=== PATIENT | female | born 1985 | race Caucasian/White ===

== ENCOUNTER 2017-03-29 01:08 | Emergency (ER) | payer MEDICAID ==
[2017-03-29 01:23] VITALS: BP 143/92
--- NOTE | 2017-03-29 02:36 | C.PDOC ---
History Of Present Illness 31 year old female presents to the ED c/o left elbow pain that started SP tripping and falling today. Patient reports she has a history of elbow surgery 2 years ago, she his right hand dominant. Patient denies changes in sensation, weakness, numbness, LOC, head injury. Time Seen by Provider: 03/29/17 01:26 Chief Complaint (Nursing): Upper Extremity Problem/Injury History Per: Patient History/Exam Limitations: no limitations Onset/Duration Of Symptoms: Hrs Current Symptoms Are (Timing): Still Present Quality: "Pain" Exacerbating Factor(s): Movement Recent travel outside of the [place]: No Additional History Per: Patient Past Medical History Reviewed: Historical Data, Nursing Documentation, Vital Signs Vital Signs: Last Vital Signs Temp 98 F 03/29/17 04:25 Pulse 82 03/29/17 04:25 Resp 20 03/29/17 04:25 BP 143/92 H 03/29/17 01:21 Pulse Ox 98 03/29/17 04:25 - Medical History PMH: Bipolar Disorder, Schizophrenia Denies: Chronic Kidney Disease Surgical History: No Surg Hx Family History: States: Unknown Family Hx - Social History Hx Tobacco Use: Yes Hx Alcohol Use: Yes Hx Substance Use: No - Immunization History Hx Tetanus Toxoid Vaccination: No Hx Influenza Vaccination: No Hx Pneumococcal Vaccination: No Review Of Systems Constitutional: Negative for: Fever, Chills Cardiovascular: Negative for: Chest Pain Respiratory: Negative for: Cough, Shortness of Breath Gastrointestinal: Negative for: Nausea, Vomiting, Abdominal Pain Musculoskeletal: Positive for: Arm Pain (left elbow) Skin: Negative for: Rash Neurological: Negative for: Weakness, Numbness Physical Exam - Physical Exam Appears: Non-toxic, No Acute Distress Skin: Normal Color, Warm, Dry Head: Atraumatic, Normacephalic Nose: No Discharge, No Deformity Oral Mucosa: Moist Neck: Normal ROM, Supple Chest: Symmetrical Cardiovascular: Rhythm Regular Respiratory: Normal Breath Sounds, No Rales, No Rhonchi, No Wheezing Gastrointestinal/Abdominal: Soft, No Tenderness Extremity: No Normal ROM (Decreased secondary to pain left elbow), Tenderness ( Dorsal aspect of left elbow), No Deformity, Swelling (dorsal aspect of left elbow) Pulses: Left Radial: Normal, Right Radial: Normal Neurological/Psych: Oriented x3, Normal Speech, Normal Cognition, Normal Sensation Gait: Steady ED Course And Treatment O2 Sat by Pulse Oximetry: 97 (On RA) Pulse Ox Interpretation: Normal - Other Rad Left elbow X-Ray X-Ray: Interpreted by Me, Viewed By Me Interpretation: No fracture or dislocation observed Progress Note: Plan: -Motrin 600 mg PO. -Left elbow X-Ray. Posterior splint placed by drafting technician, patient instructed to follow up with orthopedic doctor. Case discussed with Dr Nolen who evaluated XR and agreed upon plan an discharge. Disposition - Disposition Referrals: Sai Copeland III, MD [Staff Provider] - Disposition: HOME/ ROUTINE Disposition Time: 02:36 Condition: STABLE Additional Instructions: Rest, ice and elevate the area. Follow up with your bone doctor in 1-2 days. Prescriptions: Naproxen [Naprosyn] 1 tab PO BID PRN #20 tab PRN Reason: Pain Instructions: Elbow Sprain (ED) Forms: [email or web address] (Bhutanese) - Clinical Impression Clinical Impression: Elbow contusion - PA / COMMERCIAL COORDINATOR / Resident Statement MD/DO has reviewed & agrees with the documentation as recorded. - Scribe Statement The provider has reviewed the documentation as recorded by the Scribe Howard Sy All medical record entries made by the Scribe were at my direction and personally dictated by me. I have reviewed the chart and agree that the record accurately reflects my personal performance of the history, physical exam, medical decision making, and the department course for this patient. I have also personally directed, reviewed, and agree with the discharge instructions and disposition.
[2017-03-29 04:27] VITALS: PULSE 82; RESP 20; TEMP 98
--- NOTE | 2017-03-29 09:39 | RAD ---
PROCEDURE: Radiographs of the left elbow. HISTORY: trauma COMPARISON: No prior. FINDINGS: BONES: There is no acute displaced fracture or bone destruction. Bone alignment is normal. Status post open reduction and internal fixation of lateral epicondylar fracture. There is also an old fracture deformity in the radial neck. JOINTS: Normal. No osteoarthritis. SOFT TISSUES: Normal. JOINT EFFUSION: None. OTHER FINDINGS: None IMPRESSION: No acute displaced fracture or dislocation.
[2017-04-02 10:07] VITALS: O2SAT 97
== END 2017-03-29 04:23 | disposition home or self-care (01) ==
LOC: C.ER 01:08
DX: S50.02XA Contusion of left elbow, initial encounter (principal); W01.0XXA Fall on same level from slipping, tripping and stumbling without subsequent striking against object, initial encounter; Z87.891 Personal history of nicotine dependence

== ENCOUNTER 2017-10-01 20:18 | Emergency (ER) | payer MEDICAID ==
[2017-10-01 20:48] VITALS: TEMP 98
[2017-10-01 21:40] LABS: HCG,QUALITATIVE URINE NEGATIVE (NEGATIVE)
[2017-10-01 21:49] LABS: SQUAMOUS EPITHIAL 15 /hpf (0-5); URINE BILIRUBIN NEGATIVE (NEGATIVE); URINE BLOOD NEGATIVE (NEGATIVE); URINE CLARITY Hazy (Clear); URINE COLOR Yellow (YELLOW); URINE GLUCOSE (UA) NORMAL (Normal); URINE LEUKOCYTE ESTERASE TRACE Leu/uL (Negative); URINE PROTEIN NEGATIVE (NEGATIVE); URINE UROBILINOGEN NORMAL mg/dL (0.2-1.0)
[2017-10-01 21:55] LABS: BARBITURATES, UR NEGATIVE (NEGATIVE); BENZODIAZEPINES, UR NEGATIVE (NEGATIVE); OPIATES, UR NEGATIVE (NEGATIVE)
[2017-10-01 21:58] LABS: PHENCYCLIDINE, UR POSITIVE (NEGATIVE)
--- NOTE | 2017-10-01 22:39 | C.PDOC ---
History Of Present Illness Pt was BIBEMS due to public intoxication. Pt admits to smoking PCP. Time Seen by Provider: 10/01/17 21:02 Chief Complaint (Nursing): Substance Abuse History Per: Patient, EMS History/Exam Limitations: intoxication Current Symptoms Are (Timing): Still Present Suicide/Self Injury Attempted (Context): None Modifying Factor(s): Other (PCP) Severity: Moderate Associated Symptoms: denies: Suicidal Thoughts, Suicidal Plan Additional History Per: Prior Records Past Medical History Reviewed: Historical Data, Nursing Documentation, Vital Signs Vital Signs: Last Vital Signs Temp 98 F 10/01/17 20:44 Pulse 115 H 10/01/17 20:44 Resp 20 10/01/17 20:44 BP 130/88 10/01/17 20:44 Pulse Ox 98 10/01/17 20:44 - Medical History PMH: Bipolar Disorder, Schizophrenia Family History: States: Unknown Family Hx - Social History Hx Tobacco Use: Yes Hx Alcohol Use: Yes Hx Substance Use: Yes - Immunization History Hx Tetanus Toxoid Vaccination: No Hx Influenza Vaccination: No Hx Pneumococcal Vaccination: No Review Of Systems Constitutional: Negative for: Fever Cardiovascular: Negative for: Chest Pain Respiratory: Negative for: Shortness of Breath Gastrointestinal: Negative for: Vomiting, Abdominal Pain Musculoskeletal: Negative for: Neck Pain Neurological: Negative for: Seizures Physical Exam - Physical Exam Appears: Non-toxic, No Acute Distress Skin: Normal Color, Warm, Dry, No Rash Head: Atraumatic, Normacephalic Eye(s): bilateral: PERRL Neck: Normal ROM, Supple Cardiovascular: Rhythm Regular Respiratory: Normal Breath Sounds, No Accessory Muscle Use Back: No CVA Tenderness Extremity: Normal ROM Neurological/Psych: Normal Motor, Normal Sensation, Slow To Respond With Command ED Course And Treatment - Laboratory Results Urine POC: Negative O2 Sat by Pulse Oximetry: 98 Pulse Ox Interpretation: Normal Progress Note: Pt is now AAOx3. Steady gait. She is requesting discharge home. Reassessment Condition: Improved Disposition Counseled Patient/Family Regarding: Studies Performed, Diagnosis, Need For Followup, Smoking Cessation - Disposition Disposition: HOME/ ROUTINE Disposition Time: 22:42 Condition: IMPROVED Additional Instructions: Avoid any illicit drugs. Follow up with your doctor. Return to the ER if you develop worsening of symptoms or if you have any other concerns. Instructions: Drug Abuse and Drug Addiction (DC) - Clinical Impression Clinical Impression: PCP (phencyclidine) abuse
[2017-10-01 22:49] VITALS: BP 120/70; PULSE 80; RESP 14; O2SAT 99
== END 2017-10-01 22:49 | disposition home or self-care (01) ==
LOC: C.ER 20:18
DX: F16.10 Hallucinogen abuse, uncomplicated (principal); F20.9 Schizophrenia, unspecified